=== PATIENT | female | born 1950 | race Caucasian/White ===

== ENCOUNTER 2024-03-05 09:36 | Outpatient (AMB) | payer MEDICARE, BC, SELFPAY ==
--- NOTE | 2024-03-05 09:46 | HO.NEPHOV ---
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 Her blood pressure has been at goal ever since she has been initiated on amlodipine 2.5 mg daily. She monitors her blood pressure at home and has been well controlled. She does not have any coronary artery disease, congestive heart failure, renal artery stenosis, peripheral arterial disease, obstructive sleep apnea, hypokalemia, hypercalcemia or renal function abnormality. She does not have any headache, visual disturbances, edema. She has history of TIA. CT angiography at that time was suggestive of fibromuscular dysplasia. Currently she feels well. [facility] Medical History (Updated 03/05/24 @ 10:08 by Moose Arteaga MD) TIA (transient ischemic attack) Osteoarthritis of right hip Hypothyroidism Essential (primary) hypertension Atypical lobular hyperplasia of left breast Age-related osteoporosis without current pathological fracture Surgical History H/O hernia repair Family History Father Hypotension Social History (Updated 03/05/24 @ 09:52 by Azul Reyes MA) Alcohol intake: current Patient Tobacco Use Status: Former Tobacco user Vital Signs 03/05/24 09:47 Height 5 ft 5 in Weight 145 lb 4 oz BMI 24.2 BP 120/70 Blood Pressure Location Lt brachial Position Sitting Pulse 74 Pulse Source Pulse Oximeter Pulse Oximetry (%) 96 Oxygen Delivery Method Room Air Physical Exam Vital Signs: Last Vital Signs Pulse 74 03/05/24 09:47 BP 120/70 03/05/24 09:47 Pulse Ox 96 03/05/24 09:47 Oxygen Delivery Method Room Air 03/05/24 09:47 BMI result Body Mass Index 24.2 Assessment & Plan Assessment & Plan (1) Essential (primary) hypertension: Code(s): I10 - Essential (primary) hypertension Plan Starr is known to have hypertension for some time. She had 24 hour blood pressure monitor. She was initiated on amlodipine 2.5 mg following the ABPM test results , which has kept her blood pressure at goal. She has normal serum potassium and renal function. She has history of transient ischemic attack and CT angiography at that time showed fibromuscular dysplasia. She was encouraged to monitor her blood pressure at home and keep up with low-sodium diet and maintain lifestyle modification. There is no indication for any angiography of renal arteries. She is on statins. I did not make any medication changes today. Follow-up lab work ordered. Appointment given follow-up given for one year. Orders: Orders Creatinine Today I10 - Essential (primary) hypertension Blood Urea Nitrogen Today I10 - Essential (primary) hypertension Electrolytes Today I10 - Essential (primary) hypertension Medications: New amlodipine 2.5 mg PO DAILY 90 tabs 4RF Coding Level of Care Code Est Pt Level 4 (06054) Diagnoses Essential (primary) hypertension I10 Results Reviewed Nephrology Results: No Data to Display
[2024-03-05 09:47] VITALS: BP 120/70; PULSE 74; O2SAT 96; BMI 24.2
== END 2024-03-05 10:17 | disposition home or self-care (01) ==
PROVIDERS: PCP Internal Medicine; Visit Provider Internal Medicine Nephrology
DX: I10 Essential (primary) hypertension (principal)
CPT/HCPCS: 99214

== ENCOUNTER → 2024-03-05 09:36 | Outpatient (BNVA) | payer MEDICARE, BC, SELFPAY | PROVIDERS: PCP Internal Medicine; Visit Provider Internal Medicine Nephrology | DX: I10 Essential (primary) hypertension (principal) | CPT/HCPCS: 99212 ==

== ENCOUNTER 2025-03-04 09:37 | Outpatient (AMB) | payer MEDICARE, BC, SELFPAY ==
--- NOTE | 2025-03-04 09:47 | HO.NEPHOV ---
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 Her blood pressure has been at goal ever since she has been initiated on amlodipine 2.5 mg daily. She monitors her blood pressure at home and has been well controlled. She does not have any coronary artery disease, congestive heart failure, renal artery stenosis, peripheral arterial disease, obstructive sleep apnea, hypokalemia, hypercalcemia or renal function abnormality. She does not have any headache, visual disturbances, edema. She has history of TIA. CT angiography at that time was suggestive of fibromuscular dysplasia. Currently she feels well. [facility] Medical History (Updated 03/05/24 @ 10:08 by Moose Arteaga MD) TIA (transient ischemic attack) Osteoarthritis of right hip Hypothyroidism Essential (primary) hypertension Atypical lobular hyperplasia of left breast Age-related osteoporosis without current pathological fracture Surgical History H/O hernia repair Family History Father Hypotension Social History Alcohol intake: current Patient Tobacco Use Status: Former Tobacco user Review of Systems Const All systems reviewed & are unremarkable except as noted in HPI and below Physical Exam Vital Signs: Last Vital Signs Pulse 68 03/04/25 09:48 BP 130/70 03/04/25 09:48 Pulse Ox 97 03/04/25 09:48 Oxygen Delivery Method Room Air 03/04/25 09:48 BMI result Body Mass Index 23.8 Const General: comfortable and no acute distress Orientation/consciousness: patient oriented x3 HEENT Head: Yes normocephalic Mouth: Normal oral and palatal mucosa present Eyes EOM: EOMs intact bilaterally Neck Neck: Yes supple Resp Auscultation: clear to auscultation bilaterally Cardio Jugular venous distension: no JVD Rate: regular rate GI Palpation (GI): Soft to palpation Auscultation: normal bowel sounds General: Yes no CVA tenderness Back/Spine/Pelvis Back: no CVA tenderness Skin General skin exam: no rashes or lesions noted Neuro General: patient oriented x3 and moves all extremities Extrem General: Yes no pedal edema Results Reviewed Nephrology Results: No Data to Display Assessment & Plan Assessment & Plan (1) Essential (primary) hypertension: Code(s): I10 - Essential (primary) hypertension Category: Medical Plan Starr is known to have hypertension for some time. She was initiated on amlodipine 2.5 mg following the ABPM test results , which has kept her blood pressure at goal. She has normal serum potassium and renal function. She has history of transient ischemic attack and CT angiography at that time showed fibromuscular dysplasia. She was encouraged to monitor her blood pressure at home and keep up with low-sodium diet and maintain lifestyle modification. There is no indication for any angiography of renal arteries. She is on statins. I did not make any medication changes today. Follow-up lab work ordered. Appointment given follow-up given for one year. Medications: Refilled amlodipine 2.5 mg PO DAILY 90 tabs 4RF Coding Level of Care Code Est Pt Level 4 (49843) Diagnoses Essential (primary) hypertension I10
[2025-03-04 09:48] VITALS: BP 130/70; PULSE 68; O2SAT 97; BMI 23.8
--- OUTSIDE RECORDS SUMMARY | 2025-03-04 10:52 | XMS_ITS | Referral Summary ---
Author Organization [facility] Address [address] [place] [address] Care Team Providers Care Despatch Clerk Name Role Phone Octavio Dewitt Amanda Primary Care Provider [phone] Encounters Date Type Department Care Team Description 12/13/2024 11:20 AM EST Follow-Up [facility] 5th Floor [address] [place] [address] Julia Johnson NP Atypical lobular hyperplasia (ALH) of left breast; Breast cancer screening, high risk patient from Last 3 Months Allergies Active Allergy Reactions Criticality Noted Date Comments Dye Unknown Medications calcium carbonate (CALTRATE 600 ORAL) Take by mouth. Active sodium fluoride-pot nitrate 1.1-5 % paste USE DIRECTED 09/20/2020 Active vitamin D3 25 mcg (1,000 unit) capsule Take 1 capsule by mouth. Active levothyroxine (SYNTHROID, LEVOTHROID) 100 mcg tablet 11/13/2020 Active amLODIPine (NORVASC) 2.5 mg tablet Take 2.5 mg by mouth daily. 06/28/2022 Active aspirin chewable tablet 81 mg Chew and swallow 81 mg by mouth once a day. 05/25/2022 Active atorvastatin (LIPITOR) 40 mg tablet 12/11/2022 Active Active Problems Problem Noted Date Diagnosed Date Atypical lobular hyperplasia (ALH) of left breas t 12/07/2018 Age-related osteoporosis wit hout current pathological fracture 12/08/2017 Breast cancer screening, high risk patient 12/09 Resolved Problems Problem Noted Date Diagnosed Date Resolved Date Atypical ductal hyperplasia of breast 10/03/2014 12/07/2018 Social History Tobacco Use Types Packs/Day Years Used Date Smoking Tobacco: Former Smokeless Tobacco: Never Tobacco Cessation:Counseling Given: Not Answered Comments:: Comments No Sex and Gender Information Value Date Recorded Sex Assigned at Female 09/11/2022 3:04 PM EDT Legal Sex Female 10:25 AM EDT Gender Identity Female 09/11/2022 3:04 PM EDT Sexual Orientation Straight 09/11/2022 3: 04 PM EDT Last Filed Vital Signs Vital Sign Reading Time Taken Comments Blood Pressure 133/85 12/13/2024 11:40 AM EST Pulse 81 12/13/2024 11:40 AM EST Temperature 36.8 ??C (98.2 ??F) 12/13/2024 11:[address] Respiratory Rate 16 12/14/2023 11:20 AM EST Oxygen Saturation 96% 12/13/2024 11:40 AM EST Inhaled Oxygen Concentration - - Weight 64 kg (141 lb 3.2 oz) 12/13/2024 11:40 AM EST Height 162.2 cm (5' 3.86 ) 12/13/2019 11:[address] Body Mass Index 24.34 12/13/2019 11:19 AM EST Plan of Treatment Upcoming Encounters Date Type Department Care Team (Late st Contact Info) Description 09/30/2025 11:15 AM EST Appointment [facility] Mammography [address] [place] [address] 12/19/2025 11:20 AM EST Follow-Up [facility] 5th Floor [address] [place] [address] Julia Johnson NP [address] [facility] Hematology/[place] [address] Procedures * Due to [place] state law, this organization might not be sharing negative HIV tests. Procedure Name Priority Date/Time Associated Diagnosis Comments GAMAL BILATERAL SCREENING DIGITAL MAMMOGRAM WITH CHRIS Routine 09/26/2024 10:59 AM EDT Encounter for screening mammogram for malignant neoplasm of breast from Last 3 Months or Most Recently Relevant to Health Maintenance Results * Due to [place] state law, this organization might not be sharing negative HIV tests. * GAMAL Bilateral Screening Digital Mammogram With Chris (09/26/2024 10:59 AM EDT) Anatomical Region Laterality Modality Breast Bilateral Mammography Narrative 10/05/2024 7:56 AM EST Starr Panchal Exam Date: 09/26/24 [facility] MAMMOGRAPHY [address] [place], [place] [id number] EXAMINATION GAMAL Bilateral Screening Digital Mammogram With Chris. INDICATION Starr Panchal ??is a 74 y.o. female and is seen for: GAMAL Bilateral Screening Digital Mammogram With Chris. CC and MLO views were obtained. FDA approved Transpara?? AI (artificial intelligence) software and R2 CAD were used as a concurrent reading aid in the interpretation of this study. COMPARISON Prior mammograms Bilateral Breast Findings: There are scattered areas of fibroglandular density. No significant masses, calcifications or other abnormalities are seen. IMPRESSION BI-RADS?? ATLAS category (overall): 1 - Negative MANAGEMENT Routine Screening Mammogram in 1 Year is recommended for bilateral. ??The patient was entered into a reminder system with a target date for their next mammogram. Patient has a TYRER CUZICK RISK ASSESSMENT SCORE of Tyrer-Cuzick: 2.76%. If the personal lifetime risk is more than 20%, according to ACS, NCCN and ACR guidelines, annual screening breast MRI is recommended in addition to annual mammography. If this radiology report contains a blank impression section, it is an incomplete radiology report. ??Please contact the interpreting radiologist or applicable radiology division as soon as possible to obtain the completed interpretation. Zeynep Pierre MD Octavio Dewitt [facility] BI PROCEDURES Final Result from Last 3 Months or Most Recently Relevant to Health Maintenance Insurance MEDICARE [facility] Care Teams Despatch Clerk Relationship Specialty Start Date End Date Octavio Dewitt PCP - General Internal Medicine 07/08/19
--- OUTSIDE RECORDS SUMMARY | 2025-03-04 10:52 | XMS_ITS | Clinical Summary ---
Author Organization [facility] Address [address] [place] [address] Care Team Providers Care Equalizing Saw Operator Name Role Phone Octavio Dewitt MD Primary Care Provider [phone] Allergies Active Allergy Reactions Criticality Noted Date Comments Iodinated Contrast Media Other (See Comments) Medications Medication Sig Dispensed Refills Start Date End Date Status alendronate (FOSAMAX) tablet 70 mg 0 12/22/2019 Active Cholecalciferol (VITAMIN D3) 25 MCG (1000 UT) CAPS Take 1 capsule by mouth. 0 Active levothyroxine (SYNTHROID, LEVOXYL) tablet 100 mcg 0 01/11/2020 Active Active Problems Problem Noted Date Diagnosed Date Osteoarthritis of one hip, right 01/21/2020 Pain of right hip joint 01/21/2020 Family History Medical History Relation Name Comments Heart disease Father Relation Name Status Comments Father Social History Tobacco Use Types Packs/Day Years Used Date Smoking Tobacco: Never Assessed Sex and Gender Information Value Date Recorded Sex Assigned at Not on file Gender Identity Not on file Sexual Orientation Not on file Last Filed Vital Signs Vital Sign Reading Time Taken Comments Blood Pressure - - Pulse - - Temperature - - Respiratory Rate - - Oxygen Saturation - - Inhaled Oxygen Concentration - - Weight 65.3 kg (144 lb) 01/21/2020 10:28 AM EST Height 162.6 cm (5' 4 ) 01/21/2020 10:28 AM EST Body Mass Index 24.72 01/21/2020 10:28 AM EST Plan of Treatment Health Maintenance Due Date Last Done Comments Hepatitis C Screening 1950 COVID-19 Vaccine (#1) 1948 Depression Screening 1960 Preventative Health Evaluation 1966 DTap / Tdap / Td (1 - Tdap) 1967 Shingrix-Zoster Vaccine (1 of 2) 1998 Fall Risk Assessment 2013 Osteoporosis Screening (DEXA Scan) 2013 Pneumococcal Vaccine (1 of 1 - PCV) 2013 RSV Adult > 60+ Yrs or Pregn ant (1 - 1-dose 75+ series) 2023 Influenza Vaccine (#1) 2024 Hepatitis B Vaccines Aged Out No long er eligible based on patient's age to complete this topic RSV Ped < 20 months Aged Out No longe r eligible based on patient's age to complete this topic Care Teams Equalizing Saw Operator Relationship Specialty Start Date End Date Octavio Dewitt MD [address] [facility] [address] [place] [address] PCP - General Internal Medicine 12/03/19
--- OUTSIDE RECORDS SUMMARY | 2025-03-04 10:52 | XMS_ITS | Encounter Summary ---
Author Organization [facility] Address [address] [place] [address] Phone Care Team Providers Care Buffer Chrome Name Role Phone Octavio Dewitt MD Primary Care Provider [phone] Encounter Details Date Type Department Care Team (Late st Contact Info) Description 09/23/2021 Documentation Only [facility] [address] [place] [id number] Azul Reyes [place] Social History Tobacco Use Types Packs/Day Years Used Date Smoking Tobacco: Never Smokeless Tobacco: Never Alcohol Use Standard Drinks/Week Comments Yes 0 (1 standard drink = 0.6 oz pure alcohol) Alcoholic Drinks/day: Occasional social drink Comments Unknown Sex and Gender Information Value Date Recorded Sex Assigned at Not on file Legal Sex Female 5:06 PM EST Gender Identity Not on file Sexual Orientation Not on file documented as of this encounter Plan of Treatment Not on file documented as of this encounter Visit Diagnoses Not on filedocumented in this encounter Care Teams Buffer Chrome Relationship Specialty Start Date End Date Octavio Dewitt MD [address] [place] [address] PCP - General 12/07/20 documented as of this encounter
--- OUTSIDE RECORDS SUMMARY | 2025-03-04 10:52 | XMS_ITS | Clinical Summary ---
Author Organization [facility] Address [address] [place] [address] Care Team Providers Care Emissions Repair Technician Name Role Phone Octavio Dewitt Amanda Primary Care Provider [phone] Allergies Active Allergy Reactions Criticality Noted Date [...] Atypical ductal hyperplasia of breast 10/03/2014 12/07/2018 Encounters Date Type Department Care Team Description 12/13/2024 11:20 AM EST Follow-Up [facility] 5th Floor [address] [place] [address] Julia Johnson NP Atypical lobular hyperplasia (ALH) of left breast; Breast cancer screening, high risk patient from Last 3 Months Family History Medical History Relation Name Comments No Known Problems Child Breast cancer Cousin paternal No Known Problems Daughter No Known Problems Father No Known Problems Grandchild No Known Problems Maternal Grandfather No Known Problems Maternal Grandmother No Known Problems Mother Breast cancer Mother's Sister Other Other Family history of Malignant Female Breast Neoplasm No Known Problems Paternal Grandfather No Known Problems Paternal Grandmother No Known Problems Sister No Known Problems Son BRCA 1/2 Neg Hx Colon cancer Neg Hx Endometrial cancer Neg Hx Ovarian cancer Neg Hx Relation Name Status Comments Child Cousin Daughter Father Grandchild Maternal Grandfather Maternal Grandmother Mother Mother's Sister Other Paternal Grandfather Paternal Grandmother Sister Son Social History Tobacco Use Types Packs/Day Years [...] Info) Description 09/30/2025 11:15 AM EST Appointment [facility] Mammography [address] [place] [address] 12/19/2025 11:20 AM EST Follow-Up [facility] 5th Floor [address] [place] [address] Julia Johnson NP [address] [facility] Hematology/[place] [address] Health Maintenance Due Date Last Done Comments Hepatitis C Screening 1950 Medicare AWV 1951 DTaP,Tdap,and Td Vaccines (1 - Tdap) 1970 CT Lung Cancer Screening (Baseline) 1998 Osteoporosis Screening 1998 Pneumococcal Vaccine: 50+ Years (1 of 1 - PCV) 1998 Alcohol/Substance Use Screening 11/27/2024 Depression Screening and Follow-Up 11/27/2024 Health Care Proxy Review 11/27/2024 Social Drivers of Health Annual Screening 11/27/2024 COVID-19 Vaccine ( season) 2025 08/01/2024, 09/27/2023, 12/02/2022, Additional history exists Influenza Vaccine (Season Ended) 2025 09/11/2023, 09/12/2022, 09/24/2021, Additional history exists Colon Cancer Screening Discontinued Colonoscopy Discontinued 05/21/2015 Zoster Vaccines Completed 12/03/2020, 08/06/2020 RSV Vaccine (60+ years old and patients) Completed 10/30/2023 Mammogram Discontinued 09/26/2024, 08/28, 09/14/2022, Additional history exists Cologuard Discontinued FOBT / Fit Test Discontinued Hepatitis B Vaccines Aged Out No long er eligible based on patient's age to complete this topic Sigmoidoscopy Discontinued Procedures * Due to [place] [employer] law, this organization might not be sharing negative HIV tests. Procedure Name Priority Date/Time Associated Diagnosis Comments GAMAL BILATERAL SCREENING DIGITAL MAMMOGRAM WITH CHRIS Routine 09/26/2024 10:59 AM EDT Encounter for screening mammogram for malignant neoplasm of breast from Last 3 Months or Most Recently Relevant to Health Maintenance Results * Due to [place] [employer] law, this organization might not be sharing negative HIV tests. * GAMAL Bilateral Screening Digital Mammogram With Chris (09/26/2024 10:59 AM EDT) Anatomical Region Laterality Modality Breast Bilateral Mammography Narrative 10/05/2024 7:56 AM EST Starr Panchal Exam Date: 09/26/24 [facility] MAMMOGRAPHY [address] [place] [id number] EXAMINATION GAMAL Bilateral Screening Digital Mammogram With [...] the completed interpretation. Zeynep Pierre MD Octavio Patel [facility] BI PROCEDURES Final Result from Last 3 Months or Most Recently Relevant to Health Maintenance Insurance MEDICARE [facility] Care Teams Emissions Repair Technician Relationship Specialty Start Date End Date Octavio Dewitt PCP - General Internal Medicine 07/08/19
--- OUTSIDE RECORDS SUMMARY | 2025-03-04 10:53 | XMS_ITS | Clinical Summary ---
Author Organization [facility] Address [address] [address] Phone Care Team Providers Care Bias Machine Operator Name Role Phone Octavio Dewitt MD Primary Care Provider [phone] Allergies Active Allergy Reactions Criticality Noted Date Comments Iodinated Contrast Media Other (see comments) 1 Medications Calcium Carb-Cholecalci ferol (CALTRATE 600+D) 600-800 MG-UNIT tablet Take 1 tablet by mouth 1 (one) time each day Active cholecalciferol (VITAMIN D-3) 25 MCG (1000 UT) capsule Take 1 capsule by mouth 1 (one) time each day Active levothyroxine (SYNTHROID, LEVOTHROID) 100 MCG tablet Take 1 tablet by mouth 1 (one) time each day Active Aspirin Low Dose 81 MG chewable tablet Chew 81 mg 1 (one) time each day 05/25/2022 Active atorvastatin (LIPITOR) 40 MG tablet Take 40 mg by mouth 1 (one) time each day 06/17/2022 Active amLODIPine (NORVASC) 2.5 MG tablet TAKE 1 TABLET BY MOUTH 1 TIME EACH DAY. 90 tablet 3 06/07/2023 Active Active Problems Problem Noted Date Diagnosed Date Essential hypertension 09/20/2021 Labile hypertension due to being in a clinical e nvironment 09/20/2021 Resolved Problems Problem Noted Date Diagnosed Date Resolved Date Hypothyroidism 09/20/2021 09/21/2021 Osteoarthritis of right hip joint 01/21/2020 09/21/2021 Pain in right hip joint 01/21/202008/28 Atypical lobular hyperplasia of left breast 12/07/2018 09/21/2021 Age-related osteoporosis wit jose current pathological fracture 12/08/2017 09/21/2021 Encounter for other screenin g for malignant neoplasm of breast 12/09/2016 09/21/2021 Family History Medical History Relation Comments Hypertension Father low blood pressu re Relation Status Comments Father Mother Social History Tobacco Use Types Packs/Day Years Used Date Smoking Tobacco: Never Smokeless Tobacco: Never Tobacco Cessation:Counseling Given: Not Answered Alcohol Use Standard Drinks/Week Comments Yes 0 (1 standard drink = 0.6 oz pure alcohol) Alcoholic Drinks/day: Occasional social drink Comments Unknown Sex and Gender Information Value Date Recorded Sex Assigned at Not on file Legal Sex Female 5:06 PM EST Gender Identity Not on file Sexual Orientation Not on file Last Filed Vital Signs Vital Sign Reading Time Taken Comments Blood Pressure 122/78 03/09/2023 2:21 PM EDT Pulse 74 03/09/2023 2:21 PM EDT Temperature - - Respiratory Rate - - Oxygen Saturation 97% 10/04/2021 3:01 PM EST Inhaled Oxygen Concentration - - Weight 63.2 kg (139 lb 6.4 oz) 03/09/2023 2:21 P M EDT Height 164.5 cm (5' 4.75 ) 10/04/2021 3:01 PM ES T Body Mass Index 23.38 10/04/2021 3:01 PM EST Plan of Treatment Health Maintenance Due Date Last Done Comments Pneumococcal Vaccine: 65+ Ye ars (1 of 2 - PCV) 1954 Influenza Vaccine (Season Ended) 2025 Hepatitis B Vaccine Aged Out No longe r eligible based on patient's age to complete this topic Insurance MEDICARE [facility] MEDICARE [facility] Care Teams Bias Machine Operator Relationship Specialty Start Date End Date Octavio Dewitt MD [address] [address] PCP - General 12/07/20
== END 2025-03-04 10:29 | disposition home or self-care (01) ==
LOC: HO.HKAS 09:37
PROVIDERS: PCP Internal Medicine; Visit Provider Internal Medicine Nephrology
DX: I10 Essential (primary) hypertension (principal)
CPT/HCPCS: 99214

== ENCOUNTER → 2025-03-04 09:37 | Outpatient (BNVA) | payer MEDICARE, BC, SELFPAY | PROVIDERS: PCP Internal Medicine; Visit Provider Internal Medicine Nephrology | DX: I10 Essential (primary) hypertension (principal) | CPT/HCPCS: 99212 ==